=== PATIENT | female | born 1955 | race Caucasian/White ===

== ENCOUNTER → 2016-10-25 | Outpatient (CLI) | payer OTHER | LOC: FIMAGING 12:00 | PROVIDERS: ATTEND Internal Medicine | DX: M54.5 Low back pain (principal) ==

== ENCOUNTER → 2017-02-21 | Outpatient (CLI) | payer OTHER | LOC: FIMAGING 13:48 | PROVIDERS: ATTEND Internal Medicine Hematology & Oncology | DX: Z12.31 Encounter for screening mammogram for malignant neoplasm of breast (principal) | CPT/HCPCS: G0202 ==

== ENCOUNTER → 2017-10-04 | Outpatient (CLI) | payer OTHER | LOC: BMCIMAGING 10:09 | PROVIDERS: ATTEND Internal Medicine Hematology & Oncology | DX: N64.4 Mastodynia (principal); Z85.43 Personal history of malignant neoplasm of ovary ==

== ENCOUNTER 2018-04-29 02:19 | Observation (INO) | payer OTHER ==
[2018-04-29 02:41] LABS: PLATELET COUNT 256 10^3/uL (150-400)
[2018-04-29] MEDS ORDERED: NS 1,000 ML IV ONE (03:06)
--- NOTE | 2018-04-29 03:42 | EDPHY ---
H & P Stated Complaint: Palpations and "weird feeling in throat" Time Seen by Provider: 04/29/18 02:30 HPI/ROS: HPI The patient presents with intermittent palpitations since October of last year. Symptoms began after taking a cough medicine with codeine. She has checked her heart rate in his but is high as 200 beats per minute she reports. She has had occasional fluttering of her chest ever since. She saw Dr. Francesca arzate from [facility] and had a residential monitor in place for about 27 days. She had minimal PVCs with heart rates that range from 50s to 150s with no signs of arrhythmia. She had an echocardiogram performed and this was normal. She says since 's she has had increasing palpitations which she feels both day and night though are worse when she lies down. She took Zyrtec tonight for some shortness of breath she attributes to mild asthma. She awoke at 1:20 a.m. To use the bathroom and noticed a tightness in her chest in her axilla bilaterally and then noticed a fast heart rate. Her checked it and it was about 200. 911 was called. Patient felt her heart rate had improved by the time paramedics arrived. She does not have any clear chest pain currently. She has cut down on her caffeine use over the last 1 week. She has not had alcohol to drink. REVIEW OF SYSTEMS 10 systems were reviewed and negative with the exception of the elements mentioned in the history of present illness. PMHx: Palpitations as above, mild asthma Soc Hx: Here with her , housed PHYSICAL General Appearance: Alert, no distress Eyes: Pupils equal and round no pallor or injection ENT, Mouth: Mucous membranes moist Respiratory: There are no retractions, lungs are clear to auscultation Cardiovascular: Irregular tachycardic rate Gastrointestinal: Abdomen is soft and non-tender, no masses, bowel sounds normal Neurological: A&O, moves all extremities Skin: Warm and dry, no rashes Musculoskeletal: Neck is supple non tender Extremities: symmetrical, full range of motion Psychiatric: Patient is oriented X 3, there is no agitation Source: Patient Exam Limitations: No limitations - Personal History Current Tetanus/Diphtheria Vaccine: Yes Current Tetanus Diphtheria and Acellular Pertussis (TDAP): Yes - Medical/Surgical History Hx Asthma: Yes Hx Chronic Respiratory Disease: No Hx Diabetes: No Hx Cardiac Disease: No Hx Renal Disease: No Hx Cirrhosis: No Hx Alcoholism: No Hx HIV/AIDS: No Hx Splenectomy or Spleen Trauma: No Other PMH: asthma, hysterectomy - Social History Smoking Status: Never smoked Constitutional: Initial Vital Signs Temperature (C) 36.5 C 04/29/18 02:20 Heart Rate 100 04/29/18 02:20 Respiratory Rate 18 04/29/18 02:20 Blood Pressure 117/77 04/29/18 02:20 O2 Sat (%) 100 04/29/18 02:20 O2 Delivery Mode Room Air Allergies/Adverse Reactions: codeine Allergy (Verified 04/29/18 10:20) Other-Enter Comments prochlorperazine [From Compazine] Allergy (Verified 04/29/18 10:20) Other-Enter Comments cough syrup Allergy (Uncoded 04/29/18 10:20) Other-Enter Comments Home Medications: Medication Instructions Recorded Albuterol [Proventil Inhaler HFA 1 - 2 puffs IH Q4H PRN 04/29/18 (*)] Cetirizine [ZyrTEC 10 mg (*)] 10 mg PO HS 04/29/18 Estradiol [Vivelle-Dot 0.075MG (*)] 0.075 mg TD WESA 04/29/18 Ibuprofen [Motrin (*)] 800 mg PO TID PRN 04/29/18 Ranitidine HCl 150 mg PO DAILY 04/29/18 Medical Decision Making - Diagnostics EKG Interpretation: EKG: Complete interpretation has been separately recorded in the [employer] archive. Summary impression: Normal sinus rhythm with occasional tachycardia which is irregular, narrow complex, with no clear P waves Imaging Results: Chest x-ray single view is unremarkable, interpreted by me, radiology interpretation is pending. Imaging: I viewed and interpreted images myself Differential Diagnosis: 62-year-old female who presents with palpitations which have gotten progressively worse over the last several months. She has been seen at [facility] by Dr. Ma. She had a normal residential monitor in March of last year , with no arrhythmia is detected, normal cardiac echo. Presents tonight for persistent symptoms associated with chest pain, which became much worse tonight when she awoke from sleep to use the bathroom. Here, EKG shows a normal sinus rhythm with episode of narrow complex irregular tachycardia. Blood pressure is normal. Her chest tightness has resolved. Patient was given a L of normal saline cardiac enzymes, electrolytes are all normal. She continued to have symptoms here and on the residential monitor oscillating from a heart rate in the 70s to as high as the 150s. She continued to have episodes of this narrow complex irregular fast rhythm. I consulted with Dr. Walton. He recommends starting Cardizem 30 mg every 6 hr p. O.. Patient's blood pressures have been in the 90s over 70s currently. I will admit the patient to the hospitalist service and have discussed the case with Dr. Kumar. I have ordered the patient a bed in the PCU. She is aware of the plan. . - Data Points Laboratory Results: Laboratory Results 04/29/18 02:24 04/29/18 02:24 Medications Given: Propafenone HCl (Rythmol Sr) 225 mg PO Q12HRS [facility] Stop: 10/26/18 10:14 Last Admin: 04/29/18 21:52 Dose: 225 mg Discontinued Medications Diltiazem HCl (Cardizem Immediate Release) 30 mg PO EDNOW ONE Stop: 04/29/18 04:05 Last Admin: 04/29/18 04:56 Dose: 30 mg Sodium Chloride (Ns) 1,000 mls @ 0 mls/hr IV EDNOW ONE; Wide Open PRN Reason: Protocol Stop: 04/29/18 03:07 Last Admin: 04/29/18 03:11 Dose: 1,000 mls Departure - Departure Disposition: [facility] Inpatient Acute Clinical Impression: Tachyarrhythmia, Chest tightness Condition: Fair
[2018-04-29] MEDS ORDERED: DILTIAZEM 30 MG TAB PO ONE (04:04)
[2018-04-29] MEDS ORDERED: ACETAMINOPHEN 325 MG TAB PO PRN (06:42)
[2018-04-29] MEDS ORDERED: ONDANSETRON DISINTEGRATING 4 MG TAB PO PRN (06:42)
[2018-04-29] MEDS ORDERED: ONDANSETRON 4 MG/2 ML VIAL IVP PRN (06:42)
--- NOTE | 2018-04-29 07:57 | GHP ---
DATE OF ADMISSION: 04/29/2018 CHIEF COMPLAINT: Palpitations. HISTORY OF PRESENT ILLNESS: This is a 62-year-old female with a remote history of ovarian cancer. L ast year she developed some palpitations. Just recently she had an evaluation by Dr. Ma, and a 30-day Holter monitor which apparently has not really shown arrhythmias; however, since New Year's, s he has been having more palpitations. She describes this as a fast heartbeat, alternating with slow. Tonight she woke up at 1:20 a.m. and went to use the bathroom and noticed some tightness in her [address] and noticed a fast heart rate. Her checked it, and it was about 200. They called 911. B y the time the paramedics arrived, her heart rate improved. She currently is chest pain free. REVIEW OF SYSTEMS: A 10-point review of systems was obtained and negative. PAST MEDICAL HISTORY: Remote history of ovarian cancer, status post hysterectomy; mild asthma. MEDICATIONS: Zyrtec, estrogen patch. SOCIAL HISTORY: No smoking or alcohol. FAMILY HISTORY: Sister also had a some type of arrhythmia that was ablated. PHYSICAL EXAMINATION: VITAL SIGNS: Afebrile, blood pressure is 101/62, heart rate 73, oxygen satura tion 99% on room air. GENERAL: Patient is well developed, in no apparent distress. HEENT: [place] sclerae. Extraocular movements intact. Moist mucous membranes. NECK: Supple. LUNGS: Good ef fort. Clear to auscultation bilaterally. CARDIOVASCULAR: Regular rate and rhythm. No murmurs, gal lops. ABDOMEN: Soft. EXTREMITIES: No clubbing, cyanosis, or edema. SKIN: Without rash. Warm, d ry, intact. NEUROLOGIC: Alert and oriented x3. PSYCH: Normal mood and affect. LABS: Chemistries normal except for liver function tests that are a little bit elevated. Glucose 13 7. EKG personally reviewed, interpreted shows normal sinus rhythm with a short burst of narrow compl ex tachycardia. It appears irregular. ASSESSMENT: A 62-year-old female presenting with palpitations and probably intermittent atrial tachy cardia. PLAN: 1. Patient will be admitted under observation. Cardiology will see the patient. She has already re ceived an echo. Will get a TSH. 2. Elevated liver function tests. This probably should be followed up by her primary care doctor. /[id number]/MODL
--- NOTE | 2018-04-29 09:50 | HOSPPROG ---
Hospitalist Progress Note Assessment/Plan: HOSPITAL MEDICINE DAYTIME ROUNDS NOTE Greater than 40 min spent at the bedside by me today with the patient and with Dr. Walton at the bedside, in addition to time previously spent by Dr. Patel on his admission activities DIAGNOSES: * SVT, diagnosed now by on monitoring manager, newly diagnosed but patient has been having very frequent and bothersome episodes for several weeks now * hypothyroidism with TSH of 8 but minimal symptoms, new diagnosis * Chronic mild elevations of liver transaminases are in the same range as has previously been seen Notably she does not use any stimulants and does not use significant alcohol, does not use any illicit drugs No history of fainting episodes I have met with the patient together with Dr Walton and we reviewed with her the diagnosis, mechanism, prognosis, and treatment options Seen by me on hospitals rounds as well as multidisciplinary rounds today We reviewed the options of no treatment, medicinal treatment, or ablation procedure. At this point her symptoms are true frequent and too bothersome particularly with heart rates as fast as 200 for her to tolerate. Treatment is clearly indicated and she agrees with this. She is agreeing right now to use beginning with medical treatment with diltiazem and propafenone to see if this is effective and well tolerated. If so then that would be the treatment going forward. If for some reason it is ineffective for she does not tolerate at she can be considered for ablation therapy PLANS: * Continue cardiac monitoring here * Begin propafenone and diltiazem dual therapy * Will need to watch her on monitoring manager for 7 days will need to change her to inpatient * DVT prophylaxis * Check a free T3 and T4, and I discussed her thyroid issues with her, she will need to continue monitoring for thyroid symptom development and worsening of her thyroid blood tests over time with her primary care physician; treatment of her thyroid condition is not indicated at this time SUBJECTIVE: At the moment she is having a normal heart rate and rhythm and feels good. However she has had numerous episodes of symptomatic tachycardia here since arriving As she has a high TSH I asked her questions about thyroid. She feels a little bit colder this year than she usually does but is not having to wear much in the way of extra clothing. She has no other current thyroid symptoms per se. There is not much in the way of thyroid disease in her family OBJECTIVE Vitals reviewed: Generally all normal but has intermittent periods of tachycardia Team Facilitator, my review: Frequent bouts of rapid SVT Exam: alert oriented skin warm dry color ok resps not labored lungs clear BSs heart regular abd soft nondistended nontender, bowel sounds present limbs warm, no edema iv site ok Objective: Vital Signs Temp Pulse Resp BP Pulse Ox 36.6 C 73 16 101/62 95 04/29/18 06:51 04/29/18 06:51 04/29/18 06:51 04/29/18 06:51 04/29/18 06:51 04/28/18 04/29/18 04/30/18 06:59 06:59 06:59 Intake Total 1000 Balance 1000 ICD10 Worksheet Patient Problems: Problems Problem Status Onset Chest tightness Acute Tachyarrhythmia Acute
--- NOTE | 2018-04-29 10:05 | PDCARCONS ---
Cardiology Consult Reason for Consult: Palpitations. Chest tightness Chief Complaint: Palpitations. Chest tightness Requesting Physician: Emergency department physician, Dr. Arely Alexander History of Present Illness: 62-year-old female who has been having symptoms of palpitations since summer of this year. Episodes became more frequent and symptomatic last night and she came to the emergency department. She was found to have salvos of atrial tachycardia. Her systolic pressure was between 90-105 mm of mercury. I was asked to consult on the patient. I visited with her on [facility] telemetry unit. Dr. Cipriano Alexander was present in the room at the time of this interview. She reports no syncope. She does have chest discomfort when she has palpitations. She is able to exercise without chest discomfort when she does not have palpitations. History Information - Allergies/Home Medication List Allergies/Adverse Reactions: codeine Allergy (Verified 04/29/18 08:50) Other-Enter Comments cough syrup Allergy (Uncoded 04/29/18 08:50) Other-Enter Comments Home Medications: Albuterol [Proventil Inhaler HFA (*)] 1 - 2 puffs IH Q4H PRN 04/29/18 [Last Taken Unknown] Cetirizine [ZyrTEC 10 mg (*)] 10 mg PO HS 04/29/18 [Last Taken 04/28/18] Estradiol [Vivelle-Dot 0.075MG (*)] 0.075 mg TD WESA 04/29/18 [Last Taken ] Ibuprofen [Motrin (*)] 800 mg PO TID PRN 04/29/18 [Last Taken Unknown] Ranitidine HCl 150 mg PO DAILY 04/29/18 [Last Taken 04/28/18] Past Medical History: Appendectomy Anal stenosis repair as an Ovarian cancer status post surgery, stage I, in remission for 15 years - Social History Smoking Status: Never smoked Physical Exam Physical Exam: Temp Pulse Resp BP Pulse Ox 36.6 C 73 16 101/62 95 04/29/18 06:51 04/29/18 06:51 04/29/18 06:51 04/29/18 06:51 04/29/18 06:51 Constitutional: no apparent distress, appears nourished Eyes: PERRL, EOMI Ears, Nose, Mouth, Throat: moist mucous membranes, hearing normal Cardiovascular: regular rate and rhythym, no murmur, rub, or gallop Respiratory: no respiratory distress Gastrointestinal: normoactive bowel sounds, soft, non-tender abdomen Genitourinary: no bladder fullness Neurologic: AAOx3 Psychiatric: interacting appropriately, not anxious, not encephalopathic Lab and Imaging 04/29/18 02:24 04/29/18 02:24 WBC 6.91 10^3/uL (3.80-9.50) 04/29/18 02:24 RBC 5.17 10^6/uL (4.18-5.33) 04/29/18 02:24 Hgb 15.1 g/dL (12.6-16.3) 04/29/18 02:24 Hct 46.1 % (38.0-47.0) 04/29/18 02:24 MCV 89.2 fL (81.5-99.8) 04/29/18 02:24 MCH 29.2 pg (27.9-34.1) 04/29/18 02:24 MCHC 32.8 g/dL (32.4-36.7) 04/29/18 02:24 RDW 13.7 % (11.5-15.2) 04/29/18 02:24 Plt Count 256 10^3/uL (150-400) 04/29/18 02:24 MPV 9.7 fL (8.7-11.7) 04/29/18 02:24 Neut % (Auto) 41.6 % (39.3-74.2) 04/29/18 02:24 Lymph % (Auto) 49.9 % (15.0-45.0) H 04/29/18 02:24 [place]quette % (Auto) 5.8 % (4.5-13.0) 04/29/18 02:24 Eos % (Auto) 1.6 % (0.6-7.6) 04/29/18 02:24 Baso % (Auto) 0.7 % (0.3-1.7) 04/29/18 02:24 Nucleat RBC Rel Count 0.0 % (0.0-0.2) 04/29/18 02:24 Absolute Neuts (auto) 2.87 10^3/uL (1.70-6.50) 04/29/18 02:24 Absolute Lymphs (auto) 3.45 10^3/uL (1.00-3.00) H 04/29/18 02:24 Absolute Monos (auto) 0.40 10^3/uL (0.30-0.80) 04/29/18 02:24 Absolute Eos (auto) 0.11 10^3/uL (0.03-0.40) 04/29/18 02:24 Absolute Basos (auto) 0.05 10^3/uL (0.02-0.10) 04/29/18 02:24 Absolute Nucleated RBC 0.00 10^3/uL (0-0.01) 04/29/18 02:24 Immature Gran % 0.4 % (0.0-1.1) 04/29/18 02:24 Immature Gran # 0.03 10^3/uL (0.00-0.10) 04/29/18 02:24 Sodium 138 mEq/L (135-145) 04/29/18 02:24 Potassium 4.1 mEq/L (3.5-5.2) 04/29/18 02:24 Chloride 107 mEq/L (97-110) 04/29/18 02:24 Carbon Dioxide 21 mEq/l (22-31) L 04/29/18 02:24 Anion Gap 10 mEq/L (6-14) 04/29/18 02:24 BUN 18 mg/dL (7-23) 04/29/18 02:24 Creatinine 0.8 mg/dL (0.6-1.0) 04/29/18 02:24 Estimated GFR > 60 04/29/18 02:24 Glucose 137 mg/dL (70-100) H 04/29/18 02:24 Calcium 9.5 mg/dL (8.5-10.4) 04/29/18 02:24 Total Bilirubin 0.6 mg/dL (0.1-1.4) 04/29/18 02:24 AST 49 IU/L (14-46) H 04/29/18 02:24 ALT 66 IU/L (9-52) H 04/29/18 02:24 Alkaline Phosphatase 95 IU/L (38-126) 04/29/18 02:24 Troponin I < 0.012 ng/mL (0.000-0.034) 04/29/18 02:24 Total Protein 7.0 g/dL (6.3-8.2) 04/29/18 02:24 Albumin 4.3 g/dL (3.5-5.0) 04/29/18 02:24 TSH 8.030 uIU/mL (0.465-4.680) H 04/29/18 02:24 EKG additional interpertation: Sinus rhythm with salvos of atrial tachycardia Telemetry: Sinus rhythm with salvos of atrial tachycardia Echocardiogram: Pending A/P Assessment: Atrial tachycardia Plan: 62-year-old female with salvos of atrial tachycardia. She is relatively hypotensive. She will not tolerate higher doses of diltiazem, she was started on diltiazem 30 mg Q 6 hr last night. She is very symptomatic with her episodes and therefore further therapy is indicated. We discussed options of antiarrhythmic drug therapy versus ablation. She will be started today on propafenone SR 225 mg twice daily. Diltiazem will be changed to 120 mg daily of sustained release formulation. She will be monitored in the hospital until control of the arrhythmia is achieved. Side effects of the drug including fatigue, constipation, pedal edema, ventricular arrhythmias and need for regular monitoring was discussed with her. As an alternative we also discussed ablation for atrial tachycardia. Risks and benefits of EPS/ablation including but not limited to risks of , myocardial infarction, stroke, tamponade which may require emergent cardiac surgery, AV block requiring implantation of a permanent pacemaker, vascular access complications which may require surgery, deep venous thrombosis, pulmonary embolism, infection, risks associated with sedation/anesthesia were discussed with the patient. Ablation will be considered if drug therapy fails or if she has side effects from the drug therapy or if she does not want to take drugs in the long-term. This was a complex discussion with the patient due to need for review of records , discussion of pathophysiology of disease and discussion regarding multiple treatment modalities. I spent 60 minutes with the patient, more than 50% of which was spent in counseling.
[2018-04-29] MEDS: PROPAFENONE HCL SR 225 MG CAP PO SCH ×2 (10:26→21:52)
[2018-04-29] MEDS ORDERED: DILTIAZEM 30 MG TAB PO SCH (12:00)
--- NOTE | 2018-04-29 13:15 | ASMTCMCOM ---
CM Note CM Note Notes: Chart reviewed for discharge planning purposes, 62 year old female admitted via ED with tachyarrhythmia . Hx significant for asthma and ovarian cancer, TSH elevated at 8, No current needs identified. CM available should needs arise. Plan: TBD Date Signed: 04/29/2018 01:14 PM Electronically Signed By:Cyndee Garcia RN
--- NOTE | 2018-04-29 15:20 | ECHO ---
[email or web address] [address] [address] Main: [phone] Fax: Transthoracic Echocardiogram Name: ANANYA RANDOLPH MR#: [id number] Study Date: 04/29/2018 Study Time: 11:20 AM Date of : 1955 Age: 62 year(s) Height: 165.1 cm (65 in.) Weight: 67.13 kg (148 lb.) BSA: 1.74 m2 Gender: Female Examination: Echo Indication: chest discomfort Image Quality: Adequate Contrast: Requested by: Harjinder Walton BP: 92 mmHg/72 mmHg Heart Rate: Rhythm: Indication: chest discomfort Procedure Staff Ends Breakage Clerk: Felicita Lagunas [facility] Reading Physician: Be Appiah MD Requesting Provider: Conclusions: 1)Normal LV size and systolic function with a LVEF of 65% and normal wall motions. 2)Mild MR without MV prolapse. 3)Mild TR with estimated normal PA pressures. Measurements: Chambers Valvular Assessment AV/MV Valvular Assessment TV/PV Normal Normal Normal Name Value Range Name Value Range Name Value Range Ao Stormy (MM): 3.2 cm (2.2 cm-3.7 AV Vmax: 1.22 m/s (1 m/s-1.7 TR Vmax: 2.27 mm/s ( - ) cm) m/s) TR PGmax: 21 mmHg ( - ) IVSd (2D): 0.8 cm (0.6 cm-1.1 AV maxP mmHg ( - ) syst. PAP: 26 mmHg ( - ) cm) LVOT Vmax: 1.08 m/s (0.7 m/s-1.1 PV Vmax: 0.70 m/s (0.6 m/s-0.9 LVDd (2D): 4.0 cm (3.9 cm-5.3 m/s) m/s) cm) MADELINE (Vmax): 2.8 cm2 ( - ) PV PGmax: 2 mmHg ( - ) LVDs (2D): 2.3 cm (2.1 cm-4 MV E Vmax: 0.57 m/s ( - ) cm) MV A Vmax: 0.49 m/s ( - ) LVPWd (2D): 0.8 cm ( - ) MV E/A: 1.16 ( - ) LVOTd 2.0 cm 2.0 cm mm LVEF (BP): 65 % (>=55 %) RVDd(2D): 2.9 cm (1.9 cm-3.8 cmmm) Continued Measurements: Chambers Valvular Assessment AV/MV Valvular Assessment TV/PV Name Value Name Value Name Value LADs: 3.1 cm MV DecTime: 183 m/s CVP (est.): 5 mmHg LADs Lon.4 cm MV E' Septal: 0.09 m/s LA Area: 17.5 cm2 MV E/E' Septal: 6.00 LA Volume: 46 ml MV E/E' Lateral: 4.60 Patient: ANANYA RANDOLPH Study Date: 04/29/2018 Page 1 of 2 11:20 AM LA Volume Index: 26.4 ml/m2 TAPSE: 2.2 cm RA Area: 14.0 cm2 Additional Vessels Name Value Ao Ascendin.9 cm Findings: Left Ventricle: Normal size left ventricle. No LV hypertrophy. Normal global systolic LV function. EF is 65 %. No regional wall motion abnormality. Normal diastolic LV function. Right Ventricle: Normal size right ventricle. Normal RV function. Right Atrium: The right atrium is normal in size. Mitral Valve: The mitral valve is normal in appearance. Mild mitral valve regurgitation is present. No mitral stenosis is present. Aortic Valve: The aortic valve is tri-leaflet. There is no aortic valve regurgitation. No aortic valve stenosis is present. Tricuspid Valve: The tricuspid valve appears normal. Mild tricuspid regurgitation is present. Right ventricular systolic pressure measures 26mmHg. The pulmonary artery pressure is normal. Pulmonic Valve: Pulmonary valve not well visualized. There is no pulmonic regurgitation seen. Aorta: Normal size aortic root measuring 3.2 cm. Normal size ascending aorta measuring 2.9 cm. IVC: Normal size and course of the IVC. Pericardium: Trivial anterior pericardial effusion. (No Signature Object) Patient: ANANYA RANDOLPH Study Date: 04/29/2018 Page 2 of 2 11:20 AM [id number]
--- NOTE | 2018-04-29 23:07 | CPEKG ---
Test Reason : OPEN Blood Pressure : / mmHG Vent. Rate : 097 BPM Atrial Rate : 070 BPM P-R Int : 150 ms QRS Dur : 082 ms QT Int : 383 ms P-R-T Axes : 056 -23 042 degrees QTc Int : 487 ms Sinus rhythm Supraventricular bigeminy Borderline left axis deviation Probable anteroseptal infarct, old Confirmed by Kat Mathew ([id number]) on 04/29/2018 11:07:16 PM Referred By: Confirmed By:Kat Mathew
[2018-04-30] MEDS: PROPAFENONE HCL SR 225 MG CAP PO SCH (08:05)
[2018-04-30] MEDS ORDERED: PSEUDOEPHEDRINE PO PRN ×2 (08:28→09:00)
[2018-04-30] MEDS ORDERED: CETIRIZINE HCL PO PRN ×2 (08:28→09:00)
[2018-04-30] MEDS ORDERED: RANITIDINE HCL 150 MG PO SCH ×2 (09:00)
[2018-04-30] MEDS ORDERED: DILTIAZEM CD 120 MG CAP PO SCH (09:00)
[2018-04-30 11:02] VITALS: BP 90/58
--- NOTE | 2018-04-30 11:16 | CPEKG ---
Test Reason : OPEN Blood Pressure : / mmHG Vent. Rate : 064 BPM Atrial Rate : 063 BPM P-R Int : 161 ms QRS Dur : 078 ms QT Int : 426 ms P-R-T Axes : 058 -26 032 degrees QTc Int : 440 ms Sinus arrhythmia Confirmed by Tim Gillis ([id number]) on 04/30/2018 11:16:17 AM Referred By: Confirmed By:Tim Gillis
--- NOTE | 2018-04-30 12:20 | ASMTCMCOM ---
CM Note CM Note Notes: 04/30/2018 Case Management Note Met w/pt during rounds this morning. There are no therapy evals ordered at this time. Pt has a planned flight to [place] on . There are no identified discharge needs from case management. [facility]oo can be reached at [phone]. Case Management d/c poc: independent with follow up as directed. Case Management available if needs change. Date Signed: 04/30/2018 12:19 PM Electronically Signed By:Yenni Garcia RN
--- NOTE | 2018-04-30 14:32 | PDCARPN ---
Cardiology Progress Note Assessment/Plan: Assessment: Atrial tachycardia Plan: Controlled with propafenone. Did not tolerate CCB due to fatigue/hypotension, will stop. F/U - 1 week ETT, 24 holter and then follow up with Vikash Ordonez MANAGER DAT[employer]ISTRATION [facility]. 04/30/18 14:32 Subjective: feels well this am x fatigue Reviewed/Discussed With: multidisciplinary team Time Spent with Patient: greater than 25 minutes Time Spent with Patient: Greater than 25 minutes spent on this patients care, greater than 50% of time spent counseling, educating, and coordinating care regarding the above mentioned plan. Objective: Vital Signs (8 Hrs) Temp Pulse Resp BP Pulse Ox 04/30/18 11:07 60 90/58 L 04/30/18 11:02 36.9 C 61 16 90/58 L 94 04/30/18 09:08 64 116/81 H 04/30/18 08:00 36.6 C 70 17 110/68 96 Intake/Output (24 Hrs) 04/29/18 04/30/18 05/01/18 11:59 11:59 11:59 Intake Total 1000 600 Balance 1000 600 Intake: Oral (ml) 600 IV Infused (ml) 1000 Other: Weight 64.864 kg Number of Voids 2 Toilet 1 Result Diagrams: 04/29/18 02:24 04/30/18 03:24 Telemetry: sinus rhythm ICD10 Worksheet Patient Problems: Problems Problem Status Onset Tachyarrhythmia Acute Chest tightness Acute
--- NOTE | 2018-04-30 14:50 | PDDCSUM ---
Discharge Summary Discharge Summary: Kerry Winkler is a 62-year-old female with past medical history of ovarian cancer who was admitted with SVT. She was started on diltiazem and propafenone after cardiology consultation and monitored on telemetry . An echocardiogram was obtained which showed normal left ventricular ejection fraction and no regional wall motion abnormalities. All labs were unremarkable. She did not tolerate the diltiazem and developed hypotension and dizziness so it was stopped. Cardiology cleared her for discharge and recommended continuing propafenone 225 Q 12. She was discharged to follow up with Cardiology for an exercise tolerance test, Holter monitor, and to follow up in the arrhythmia Clinic. Discharge diagnosis SVT/atrial tachycardia New medications propafenone 225 Q12 Follow up Harjinder Walton for ETT, Holter Vikash Ordonez for arrythmia clinic I spent over 35 min on discharge planning.
--- NOTE | 2018-04-30 14:55 | ASDISCHSUM ---
Discharge Information Plan Status:Home with No Needs Medically Cleared to Leave:04/29/2018 Discharge Date:04/29/2018 CM D/C Disposition:Home, Routine, Self-Care ADT D/C Disposition:Home, Routine, Self-Care Projected Discharge Date:04/29/2018 Transportation at D/C:Family Discharge Delay Reason: Follow-Up Date:04/29/2018 Discharge Slot: Final Diagnosis: Placement Information Patient Contact Information Contact Name:LUNA Relationship: Address:[address] Work Phone: City:[place] Alternate Phone: State/Zip Code:[place] [address] Email: Financial Information Financial Class:BCOP Primary Plan Desc:[facility]AY PLAN Primary Plan Number:[id number] Secondary Plan Desc: Secondary Plan Number: Assessment Information LACE LACE Length of stay for Answers: 1 day current admission Acuity / Level of Answers: No Care: Did the patient have an inpatient admission? Comorbidities - select Answers: Any tumor (including all that apply lymphoma or leukemia) Score: 3 Date Signed: 04/30/2018 02:54 PM Electronically Signed By:Yenni Garcia RN [facility] CM Progress Note CM Note CM Note Notes: Chart reviewed for discharge planning purposes, 62 year old female admitted via ED with tachyarrhythmia . Hx significant for asthma and ovarian cancer, TSH elevated at 8, No current needs identified. CM available should needs arise. Plan: TBD Date Signed: 04/29/2018 01:14 PM Electronically Signed By:Cyndee Garcia RN [facility] CM Progress Note CM Note CM Note Notes: 04/30/2018 Case Management Note Met w/pt during rounds this morning. There are no therapy evals ordered at this time. Pt has a planned flight to [place] on . There are no identified discharge needs from case management. Ashley Berkowitz can be reached at [phone]. Case Management d/c poc: independent with follow up as directed. Case Management available if needs change. Date Signed: 04/30/2018 12:19 PM Electronically Signed By:Yenni Garcia RN Intervention Information
== END 2018-04-30 15:24 | disposition home or self-care (01) ==
LOC: EDUNIT# → INTOOBSV 04:15 → F2W 05:05
PROVIDERS: ADMIT Internal Medicine; ATTEND Internal Medicine
DX: I47.1 Supraventricular tachycardia (principal); Z85.43 Personal history of malignant neoplasm of ovary
CPT/HCPCS: 71045; 93005; 93306; 96360; 99285; G0378; 84481-90